=== PATIENT | male | born 1955 | race Caucasian/White ===

== ENCOUNTER → 2016-12-24 | Outpatient (CLI) | payer OTHER ==
--- NOTE | 2016-12-24 08:59 | PCVCIMAG ---
APPROVED REPORT Indications Pre-op for CABG clearance Doppler Spectral Velocity Analysis PSV / EDVPSV / EDV ECA (R) 112 / 9 cm/sECA (L) 95 / 9 cm/s dICA (R) 76 / 28 cm/sdICA (L) 74 / 28 cm/s Guillermo (R) 95 / 36 cm/smICA (L) 95 / 30 cm/s pICA (R) 79 / 20 cm/spICA (L) 93 / 24 cm/s Bulb (R) 100 / 22 cm/sBulb (L) 90 / 17 cm/s dCCA (R) 60 / 14 cm/sdCCA (L) 98 / 17 cm/s mCCA (R) 85 / 16 cm/smCCA (L) 111 / 20 cm/s Vert (R) 36 / 7 cm/sVert (L) 41 / 13 cm/s ICA/CCA 1.58ICA/CCA 0.97 Basic Measurements Blood Pressure: Pulses: Right Left RightLeft Brachial(Sitting) 146/46bdVk062/80mmHgTemporal Real Time B-Mode Imaging Vert. (R)AntegradeVert. (L)Antegrade Findings The right carotid bulb has moderate plaque. The right proximal internal carotid artery shows <40% stenosis. The right common carotid artery shows no significant stenosis. The right external carotid artery shows no significant stenosis. The left carotid bulb has moderate plaque. The left proximal internal carotid artery shows <40% stenosis. The left common carotid artery shows no significant stenosis. The left external carotid artery shows no significant stenosis. Conclusion 1. Right internal carotid artery stenosis (<40%) 2. Left internal carotid artery stenosis (<40%) 3. Antegrade vertebral flow
--- NOTE | 2016-12-24 09:06 | PCVCIMAG ---
APPROVED REPORT Study performed: 12/24/2016 08:08:39 EXAM: Comprehensive 2D, Doppler, and color-flow Echocardiogram Patient Location: Echo lab Other Information Study Quality: Adequate Risk Factors: Cardiac Risk Factors: HTN Indications CAD s/p LAD stents and history of VA 2D Dimensions LVEF(%): 30.63 (>50%) IVSd: 12.59 (7-11mm) LVDd: 50.86 mm PWd: 11.34 (7-11mm) LVDs: 43.50 (25-40mm) Left Atrium: 42.99 (27-40mm) Aortic Root: 35.30 mm LV Single Plane 4CH: 53.36 % LV Single Plane 2CH: 58.44 %Quach's LVEF: 55.90 % Biplane EF: 56.2 % Volumes Left Atrial Volume (Systole) Single Plane 4CH: 67.27 mLSingle Plane 2CH: 66.16 mL LA ESV Index: 30.00 mL/m2 Aortic Valve AoV Peak Marcelo.: 1.32 m/s AO Peak Gr.: 6.92 mmHgLVOT Max P.98 mmHg LVOT Max V: 1.12 m/s Mitral Valve E/A Ratio: 1.8 MV Decel. Time: 249.41 ms MV E Max Marcelo.: 0.73 m/s MV A Marcelo.: 0.40 m/s IVRT: 134.95 ms Pulmonary Valve PV Peak Marcelo.: 1.08 m/sPV Peak Gr.: 4.65 mmHg Pulmonary Vein P Vein S: 0.46 m/sP Vein A: 0.30 m/s P Vein D: 0.56 m/sP Vein A Dur.: 124.6 msec P Vein S/D Ratio: 0.82 Tricuspid Valve TR Peak Marcelo.: 2.29 m/s TR Peak Gr.: 21.03 mmHg Left Ventricle The left ventricle is normal size. Mild, distal inferolateral wall hypokinesis Mild concentric left ventricular hypertrophy. Left ventricular systolic function is normal. LVEF is 50-55%. Grade II - pseudonormal filling dynamics. Right Ventricle The right ventricle is normal size. The right ventricular systolic function is normal. Atria The left atrium size is normal. The right atrium size is normal. Aortic Valve The aortic valve is normal in structure. No aortic regurgitation is present. There is no aortic valvular stenosis. Mitral Valve The mitral valve is normal in structure. Mild mitral regurgitation. No evidence of mitral valve stenosis. Tricuspid Valve The tricuspid valve is normal in structure. There is no tricuspid valve regurgitation noted. Pulmonic Valve The pulmonary valve is normal in structure. There is no pulmonic valvular regurgitation. Great Vessels The aortic root is normal in size. IVC is normal in size and collapses with >50% inspiration Pericardium There is no pericardial effusion. <Conclusion> Left ventricular systolic function is normal. Mild, distal inferolateral wall hypokinesis LVEF is 50-55%. Grade II diastolic dysfunction The aortic valve is normal in structure. No aortic regurgitation or stenosis The mitral valve is normal in structure. Mild mitral regurgitation. Pulmonary artery pressure could not be reliably ascertained There is no pericardial effusion.
== END | disposition home or self-care (01) ==
LOC: PCVCIMAG 08:03
PROVIDERS: ATTEND Internal Medicine
DX: Z01.810 Encounter for preprocedural cardiovascular examination (principal); I65.23 Occlusion and stenosis of bilateral carotid arteries; I34.0 Nonrheumatic mitral (valve) insufficiency; I25.10 Atherosclerotic heart disease of native coronary artery without angina pectoris; I10 Essential (primary) hypertension; I25.2 Old myocardial infarction; E78.5 Hyperlipidemia, unspecified; K21.9 Gastro-esophageal reflux disease without esophagitis; Z95.5 Presence of coronary angioplasty implant and graft
CPT/HCPCS: 93306; 93880